=== PATIENT | female | born 1985 | race Two or more races ===

== ENCOUNTER 2017-12-03 00:30 | Emergency (ER) | payer SELFPAY | END 2017-12-03 01:20 | disposition home or self-care (01) | LOC: ER 00:30 | DX: B34.9 Viral infection, unspecified (principal) | CPT/HCPCS: 99281 ==

== ENCOUNTER → 2018-10-29 | Emergency (ER) | payer SELFPAY ==
[~2018-10-29] VITALS: Ht 157.5 cm; Wt 68.0 kg
[~2018-10-29] MED LIST: AMOX1TAB61 PO; DEXAMETHASONE SOD PHOS 20 MG/5 ML VIAL. IV ONE; DICL50TA2 PO; IV NORMAL SALINE 1000ML BAG 1,000 ML IV ONE; ONDA4TAB7 PO; PROCHLORPERAZINE 10 MG/2 ML VIAL. IV ONE
--- NOTE | 2018-10-29 15:37 | PHYS DOC ---
Past Medical History Past Medical History: No Pertinent History Past Surgical History: No Surgical History Alcohol Use: None Drug Use: None Adult General Chief Complaint Chief Complaint: HEADACHE HPI HPI Patient is a 33 year old female with no significant medical history who presents today complaining of a 5 out of 10 frontal headache radiating to the back of her head that has been going on for 6 days. Patient states the headache comes and goes. She describes the headache as inflammation. She is also complaining of nausea but no vomiting. She states she's had similar headaches before but has not been diagnosed with migraine headaches. She is Kiswahili- speaking but able to understand but speaks some Lithuanian. She is in the ED with the niece who is interpreting for Kiswahili. Review of Systems Review of Systems Constitutional: Denies fever or chills [] Eyes: Denies change in visual acuity, redness, or eye pain [] HENT: Denies nasal congestion or sore throat [] Respiratory: Denies cough or shortness of breath [] Cardiovascular: No additional information not addressed in HPI [] GI: Reports nausea. Denies abdominal pain, nausea, vomiting, bloody stools or diarrhea [] : Denies dysuria or hematuria [] Musculoskeletal: Denies back pain or joint pain [] Integument: Denies rash or skin lesions [] Neurologic: Reports headache, denies focal weakness or sensory changes [] All other systems were reviewed and found to be within normal limits, except as documented in this note. Current Medications Current Medications Current Medications Medications (Trade) Dose Ordered Sig/Rosmery Start Time Stop Time Status Last Admin Dose Admin Dexamethasone Sodium Phosphate (Decadron) 10 mg 1X ONCE 10/29/18 15:45 10/29/18 15:46 DC 10/29/18 15:59 10 MG Prochlorperazine Edisylate (Compazine) 10 mg 1X ONCE 10/29/18 15:45 10/29/18 15:46 DC 10/29/18 15:59 10 MG Sodium Chloride 1,000 ml @ 1,000 mls/hr 1X ONCE 10/29/18 15:45 10/29/18 16:44 10/29/18 16:00 1,000 MLS/HR Allergies Allergies Allergies Coded Allergies Type Severity Reaction Last Updated Verified No Known Drug Allergies 10/29/18 No Physical Exam Physical Exam Constitutional: Well developed, well nourished, no acute distress, non-toxic appearance. [] HENT: Normocephalic, atraumatic, bilateral external ears normal, oropharynx moist, no oral exudates, nose normal. [] Eyes: PERRLA, EOMI, conjunctiva normal, no discharge. [] Neck: Normal range of motion, no tenderness, supple, no stridor. [] Cardiovascular:Heart rate regular rhythm, no murmur [] Lungs & Thorax: Bilateral breath sounds clear to auscultation [] Abdomen: Bowel sounds normal, soft, no tenderness, no masses, no pulsatile masses. [] Skin: Warm, dry, no erythema, no rash. [] Back: No tenderness, no CVA tenderness. [] Extremities: No tenderness, no cyanosis, no clubbing, ROM intact, no edema. [] Neurologic: Alert and oriented X 3, normal motor function, normal sensory function, no focal deficits noted. Cranial nerves II through XII intact Psychologic: Affect normal, judgement normal, mood normal. [] Current Patient Data Vital Signs Vital Signs Date Time Temp Pulse Resp B/P (MAP) Pulse Ox O2 Delivery O2 Flow Rate FiO2 10/29/18 15:59 66 18 99 10/29/18 15:30 97.6 143/82 (102) Room Air 97.6 Lab Values Laboratory Tests Test 10/29/18 15:24 10/29/18 15:42 10/29/18 15:45 Urine Collection Type Unknown Urine Color Yellow Urine Clarity Clear Urine pH 6.0 Urine Specific [place] 1.010 Urine Protein Negative mg/dL (NEG-TRACE) Urine Glucose (UA) Negative mg/dL (NEG) Urine Ketones (Stick) Negative mg/dL (NEG) Urine Blood Small (NEG) Urine Nitrite Negative (NEG) Urine Bilirubin Negative (NEG) Urine Urobilinogen Dipstick 0.2 mg/dL (0.2 mg/dL) Urine Leukocyte Esterase Negative (NEG) Urine RBC Rare /HPF (0-2) Urine WBC Rare /HPF (0-4) Urine Squamous Epithelial Cells Many /LPF Urine Bacteria Mod /HPF (0-FEW) POC Urine HCG, Qualitative Hcg negative (Negative) White Blood Count 7.1 x10^3/uL (4.0-11.0) Red Blood Count 4.17 x10^6/uL (3.50-5.40) Hemoglobin 14.0 g/dL (12.0-15.5) Hematocrit 40.1 % (36.0-47.0) Mean Corpuscular Volume 96 fL (79-100) Mean Corpuscular Hemoglobin 34 pg (25-35) Mean Corpuscular Hemoglobin Concent 35 g/dL (31-37) Red Cell Distribution Width 12.5 % (11.5-14.5) Platelet Count 230 x10^3/uL (140-400) Neutrophils (%) (Auto) 60 % (31-73) Lymphocytes (%) (Auto) 33 % (24-48) Monocytes (%) (Auto) 6 % (0-9) Eosinophils (%) (Auto) 1 % (0-3) Basophils (%) (Auto) 1 % (0-3) Neutrophils # (Auto) 4.2 x10^3uL (1.8-7.7) Lymphocytes # (Auto) 2.3 x10^3/uL (1.0-4.8) Monocytes # (Auto) 0.4 x10^3/uL (0.0-1.1) Eosinophils # (Auto) 0.1 x10^3/uL (0.0-0.7) Basophils # (Auto) 0.1 x10^3/uL (0.0-0.2) Sodium Level 139 mmol/L (136-145) Potassium Level 3.4 mmol/L (3.5-5.1) L Chloride Level 103 mmol/L (98-107) Carbon Dioxide Level 25 mmol/L (21-32) Anion Gap 11 (6-14) Blood Urea Nitrogen 15 mg/dL (7-20) Creatinine 0.9 mg/dL (0.6-1.0) Estimated GFR (Cockcroft-Gault) 71.3 Glucose Level 88 mg/dL (70-99) Calcium Level 8.9 mg/dL (8.5-10.1) Laboratory Tests 10/29/18 15:45 Laboratory Tests 10/29/18 15:45 EKG EKG [] Radiology/Procedures Radiology/Procedures []PROCEDURE: CT HEAD WO CONTRAST CT HEAD WO CONTRAST Indication: SORIANO X 6 DAYS FRONTAL SOIRANO RADIATING TO ANUP OF HEAD X 6 DAYS NO PREV Exposure: One or more of the following individualized dose reduction techniques were utilized for this examination: 1. Automated exposure control 2. Adjustment of the mA and/or kV according to patient size 3. Use of iterative reconstruction technique. Comparison: None are available. Contrast: None FINDINGS: Posterior fossa is unremarkable. No evidence of acute intracranial hemorrhage or abnormal extra-axial fluid collection. No evidence of mass effect or midline shift. Ventricles are symmetric in size and configuration. Orellana-white matter distinction is intact. Visualized orbits are unremarkable. Partially visualized ethmoid sinuses demonstrate mucosal thickening. Mild mucosal thickening within the partially visualized sphenoid and maxillary sinuses. No acute calvarial abnormality. Impression: 1. Paranasal sinus disease. 2. Negative for acute intracranial hemorrhage or mass effect. Electronically signed by: Wander Mahmood MD (10/29/2018 4:30 PM) [facility] DICTATED and SIGNED BY: WANDER MAHMOOD MD DATE: 10/29/18 8238 Course & Med Decision Making Course & Med Decision Making Pertinent Labs and Imaging studies reviewed. (See chart for details) This is a 33-year-old female patient presenting to the ED today with a headache intermittently for 6 days as well as nausea with no vomiting. Has history of similar headaches, no fissure diagnosis of migraine. Her vitals are normal. She has no meningeal signs. She was given 1 L of IV fluid Solu-Medrol and Compazine with good relief of her headache. CBC BMP with no acute findings, urine analysis is negative for infection, negative urine hCG, CT of the head is negative for any acute findings, noted for sinusitis. Patient discharged on Augmentin. Given prescription for diclofenac for her headache. Also given prescription for Zofran as needed. Follow-up with her PCP in one week. Instructed fluids. Dragon Disclaimer Dragon Disclaimer This electronic medical record was generated, in whole or in part, using a voice recognition dictation system. Departure Departure Impression: Primary Impression: Sinusitis Additional Impression: Sinus headache Disposition: 01 HOME, SELF-CARE Condition: STABLE Referrals: NO PCP (PCP) Follow-up with your doctor in 1-2 weeks Patient Instructions: Sinus Headache, [id number], Sinusitis Additional Instructions: You were evaluated in the emergency room for a headache and noted to have sinus infection. We put you on antibiotics and pain medications, take them as prescribed. Follow-up with your doctor in 1-2 weeks. Push fluids. Come back to the ED at any point symptoms worsen. Scripts Ondansetron Hcl (ZOFRAN) 4 Mg Tablet 1 TAB PO Q6HRS, #20 TAB Prov: PEGGY BAUM APRN 10/29/18 Diclofenac Potassium (DICLOFENAC POTASSIUM) 50 Mg Tablet 1 TAB PO BID, #30 TAB 0 Refills Prov: PEGGY BAUM APRN 10/29/18 Amoxicillin/Potassium Clav (AUGMENTIN 875-125 TABLET) 1 Each Tablet 1 TAB PO BID, #20 TAB Prov: PEGGY BAUM APRN 10/29/18 Problem Qualifiers Primary Impression: Sinusitis Sinusitis location: pansinusitis Chronicity: acute Recurrence: non- recurrent Qualified Codes: J01.40 - Acute pansinusitis, unspecified PEGGY BAUM APRN Oct 29, 2018 15:37
[2018-10-29 15:54] LABS: BASO # 0.1 x10^3/uL (0.0-0.2); BASO % 1 % (0-3); EOS # 0.1 x10^3/uL (0.0-0.7); EOS % 1 % (0-3); HEMATOCRIT 40.1 % (36.0-47.0); LYMPH # 2.3 x10^3/uL (1.0-4.8); LYMPH % 33 % (24-48); MEAN CORPUSCULAR HEMOGLOBIN 34 pg (25-35); MEAN CORPUSCULAR HGB CONC 35 g/dL (31-37); MEAN CORPUSCULAR VOLUME 96 fL (79-100); MONO # 0.4 x10^3/uL (0.0-1.1); MONO % 6 % (0-9); NEUT # 4.2 x10^3uL (1.8-7.7); NEUT % 60 % (31-73); PLATELET COUNT 230 x10^3/uL (140-400); RED BLOOD COUNT 4.17 x10^6/uL (3.50-5.40); RED CELL DISTRIBUTION WIDTH 12.5 % (11.5-14.5); WHITE BLOOD COUNT 7.1 x10^3/uL (4.0-11.0)
[2018-10-29 15:56] LABS: BILIRUBIN,URINE NEGATIVE (NEG); CLARITY,URINE CLEAR; COLOR,URINE YELLOW; NITRITE,URINE NEGATIVE (NEG); PROTEIN,URINE NEGATIVE (NEG-TRACE); UROBILINOGEN,URINE 0.2 mg/dL (0.2 mg/dL)
[2018-10-29 16:03] LABS: BACTERIA,URINE MOD /HPF (0-FEW); RBC,URINE RARE /HPF (0-2); SQUAMOUS EPITHELIAL CELL,UR MANY /LPF; WBC,URINE RARE /HPF (0-4)
[2018-10-29 16:06] LABS: CALCIUM 8.9 mg/dL (8.5-10.1); CREATININE 0.9 mg/dL (0.6-1.0); GFR 71.3; POTASSIUM 3.4 mmol/L (3.5-5.1)
--- NOTE | 2018-10-29 16:33 | RAD ---
CT HEAD WO CONTRAST Indication: SORIANO X 6 DAYS FRONTAL SORIANO RADIATING TO ANUP OF HEAD X 6 DAYS NO PREV Exposure: One or more of the following individualized dose reduction techniques were utilized for this examination: 1. Automated exposure control 2. Adjustment of the mA and/or kV according to patient size 3. Use of iterative reconstruction technique. Comparison: None are available. Contrast: None FINDINGS: Posterior fossa is unremarkable. No evidence of acute intracranial hemorrhage or abnormal extra-axial fluid collection. No evidence of mass effect or midline shift. Ventricles are symmetric in size and configuration. Orellana-white matter distinction is intact. Visualized orbits are unremarkable. Partially visualized ethmoid sinuses demonstrate mucosal thickening. Mild mucosal thickening within the partially visualized sphenoid and maxillary sinuses. No acute calvarial abnormality. Impression: 1. Paranasal sinus disease. 2. Negative for acute intracranial hemorrhage or mass effect. Electronically signed by: Wander Mahmood MD (10/29/2018 4:30 PM) [facility]
[2018-10-29 17:07] VITALS: BP 116/76
== END ==
LOC: ER 15:14
DX: J01.40 Acute pansinusitis, unspecified (principal); R51 Headache; R11.0 Nausea
CPT/HCPCS: 36415; 70450; 80048; 81001; 81025; 85025; 96374; 96375; 99284; J0780; J1100; J7030

== ENCOUNTER 2019-01-16 09:55 | Inpatient (IN) | payer SELFPAY ==
[~2019-01-16] VITALS: Ht 154.9 cm; Wt 68.0 kg
[~2019-01-16 09:55] MED LIST changes: -DEXAMETHASONE SOD PHOS 20 MG/5 ML VIAL. IV ONE; -IV NORMAL SALINE 1000ML BAG 1,000 ML IV ONE; -PROCHLORPERAZINE 10 MG/2 ML VIAL. IV ONE
[2019-01-16 10:28] LABS: BILIRUBIN,URINE NEGATIVE (NEG); CLARITY,URINE CLEAR; COLOR,URINE YELLOW; NITRITE,URINE NEGATIVE (NEG); PROTEIN,URINE NEGATIVE (NEG-TRACE); UROBILINOGEN,URINE 0.2 mg/dL (0.2 mg/dL)
[2019-01-16 10:35] LABS: BASO # 0.1 x10^3/uL (0.0-0.2); BASO % 1 % (0-3); EOS % 1 % (0-3); HEMATOCRIT 22.5 % (36.0-47.0); HEMOGLOBIN 7.8 g/dL (12.0-15.5); LYMPH # 1.7 x10^3/uL (1.0-4.8); LYMPH % 28 % (24-48); MEAN CORPUSCULAR HEMOGLOBIN 34 pg (25-35); MEAN CORPUSCULAR HGB CONC 35 g/dL (31-37); MEAN CORPUSCULAR VOLUME 97 fL (79-100); MONO # 0.3 x10^3/uL (0.0-1.1); MONO % 5 % (0-9); NEUT # 3.9 x10^3uL (1.8-7.7); NEUT % 65 % (31-73); PLATELET COUNT 229 x10^3/uL (140-400); RED BLOOD COUNT 2.32 x10^6/uL (3.50-5.40); RED CELL DISTRIBUTION WIDTH 11.9 % (11.5-14.5)
[2019-01-16 10:36] LABS: BACTERIA,URINE FEW /HPF (0-FEW); RBC,URINE 20-40 /HPF (0-2); SQUAMOUS EPITHELIAL CELL,UR FEW /LPF; WBC,URINE OCC /HPF (0-4)
[2019-01-16 10:58] LABS: CALCIUM 8.2 mg/dL (8.5-10.1); CREATININE 0.8 mg/dL (0.6-1.0); GFR 81.6; POTASSIUM 3.8 mmol/L (3.5-5.1)
[2019-01-16 11:03] LABS: ALBUMIN 3.3 g/dL (3.4-5.0); TOTAL BILIRUBIN 0.3 mg/dL (0.2-1.0); TOTAL PROTEIN 6.7 g/dL (6.4-8.2)
--- NOTE | 2019-01-16 12:21 | RAD ---
Examination: Ultrasound pelvis HISTORY: History of vaginal bleeding for 2 weeks COMPARISON: None available. FINDINGS: The uterus measures 8.3 x 4.5 x 5.8 cm. The endometrium measures 3.3 mm in thickness. The right ovary measures 2.9 x 1.60 2.4 cm. The left ovary measures 3.8 x 2.6 x 3.3 cm. Blood flow identified in the right and left ovaries. Small amount of free fluid identified in the pelvis. There is a 3.8 cm cyst identified in the left ovary. IMPRESSION: 1. 3.8 cm cyst left ovary. 2. Small amount of free fluid identified in the pelvis. Electronically signed by: Jordon Rodriguez MD (01/16/2019 12:18 PM) [place] [id number]
[2019-01-16] MEDS: IV NORMAL SALINE 1000ML BAG 1,000 ML IV SCH ×2 (12:48→20:48)
[2019-01-16] MEDS ORDERED: fentaNYL PF VIAL 100 MCG/2 ML VIAL IV PRN (13:00)
[2019-01-16] MEDS ORDERED: ONDANSETRON PF 4 MG/2 ML VIAL. IV PRN (13:00)
[2019-01-16] MEDS ORDERED: ACETAMINOPHEN 325 MG TABLET. PO PRN (13:00)
[2019-01-16 13:45] VITALS: BP 93/68
[2019-01-16] MEDS: IV RINGERS,LACTATED 1000ML 1,000 ML IV SCH (13:53)
[2019-01-16] MEDS ORDERED: ESTROGENS, CONJUGATED 25 MG VIAL IV ONE (14:00)
--- NOTE | 2019-01-16 14:07 | PDOC1 ---
History and Physical Date of Admission Date of Admission DATE: 01/16/19 TIME: 14:02 Identification/Chief Complaint Chief Complaint vaginal bleeding Source Source: Chart review, Patient History of Present Illness History of Present Illness 33 y/o A1 presented to ED with c/o vaginal bleeding for past few weeks. She reports menses heavy past few months. Hgb 7 and Pelvic sono MICHELE cyst 4 cm size. She reports pain in LLQ that is controlled with Motrin. Discussed findings and plan of care with patient and family with family seismic interpreter. Past Medical History Cardiovascular: No pertinent hx Pulmonary: No pertinent hx GI: No pertinent hx Heme/Onc: No pertinent hx Psych: No pertinent hx Musculoskeletal: low back pain Infectious disease: No pertinent hx Renal/: No pertinent hx Endocrine: No pertinent hx Dermatology: No pertinent hx Current Medications Current Medications Current Medications Estrogens Conjugated (Premarin) 25 mg 1X ONCE IV Last administered on at 13:03; Start 01/16/19 at 14:00; Stop 01/16/19 at 14:01; Status DC Ondansetron HCl (Zofran) 4 mg PRN Q8HRS PRN IV NAUSEA/VOMITING; Start 01/16/19 at 13:00; Stop 01/17/19 at 12:59 Fentanyl Citrate (Fentanyl 2ml Vial) 50 mcg PRN Q1HR PRN IV PAIN; Start at 13:00; Stop 01/17/19 at 12:59 Sodium Chloride 1,000 ml @ 125 mls/hr Q8H IV ; Start 01/16/19 at 12:48; Stop at 12:47 Acetaminophen (Tylenol) 650 mg PRN Q4HRS PRN PO FEVER; Start 01/16/19 at 13:00 ; Stop 01/17/19 at 12:59 Ringer's Solution 1,000 ml @ 75 mls/hr [id number] IV Last administered on at 13:53; Start 01/16/19 at 14:00 Active Scripts Active Zofran (Ondansetron Hcl) 4 Mg Tablet 1 Tab PO Q6HRS Diclofenac Potassium 50 Mg Tablet 1 Tab PO BID Augmentin 875-125 Tablet (Amoxicillin/Potassium Clav) 1 Each Tablet 1 Tab PO BID Allergies Allergies: Coded Allergies: No Known Drug Allergies (Unverified , 10/29/18) ROS General: YES: Fatigue; No: Chills, Night Sweats, Malaise, Appetite, Other PSYCHOLOGICAL ROS: No: Anxiety, Behavioral Disorder, Concentration difficultie , Decreased libido, Depression, Disorientation, Hallucinations, Hostility, Irritablity, Memory difficulties, Mood Swings, Obsessive thoughts, Physical abuse, Sexual abuse, Sleep disturbances, Suicidal ideation, Other Eyes: No Blurry vision, No Decreased vision, No Double vision, No Dry eyes, No Excessive tearing, No Eye Pain, No Itchy Eyes, No Loss of vision, No Photophobia , No Scotomata, No Uses contacts, No Uses glasses, No Other HEENT: No: Heacaches, Visual Changes, Hearing change, Nasal congestion, Nasal discharge, Oral lesions, Sinus pain, Sore Throat, Epistaxis, Sneezing, Snoring, Tinnitus, Vertigo, Vocal changes, Other ALLERGY AND IMMUNOLOGY: No: Hives, Insect Bite Sensitivity, Itchy/Watery Eyes, Nasal Congestion, Post Nasal Drip, Seasonal Allergies, Other Hematological and Lymphatic: No: Bleeding Problems, Blood Clots, Blood Transfusions, Brusing, Night Sweats, Pallor, Swollen Lymph Nodes, Other ENDOCRINE: No: Breast Changes, Galactorrhea, Hair Pattern Changes, Hot Flashes , Malaise/lethargy, Mood Swings, Palpitations, Polydipsia/polyuria, Skin Changes , Temperature Intolerance, Unexpected Weight Changes, Other Breast: No New/Changing Breast Lumps, No Nipple changes, No Nipple discharge, No Other Respiratory: No: Cough, Hemoptysis, Orthopnea, Pleuritic Pain, Shortness of breath, SOB with excertion, Sputum Changes, Stridor, Tachypnea, Wheezing, Other Cardiovascular: No Chest Pain, No Palpitations, No Orthopnea, No Paroxysmal Noc. Dyspnea, No Edema, No Lt Headedness, No Other Gastrointestinal: Yes Abdominal Pain; No Nausea, No Vomiting, No Diarrhea, No Constipation, No Melena, No Hematochezia, No Other Genitourinary: No Dysuria, No Frequency, No Incontinence, No Hematuria, No Retention, No Discharge, No Urgency, No Pain, No Flank Pain, No Other, No , No , No , No , No , No , No Musculoskeletal: No Gait Disturbance, No Joint Pain, No Joint Stiffness, No Joint Swelling, No Muscle Pain, No Muscular Weakness, No Pain In:, No Swelling In:, No Other Skin: No Dry Skin, No Eczema, No Hair Changes, No Lumps, No Mole Changes, No Mottling, No Nail Changes, No Pruritus, No Rash, No Skin Lesion Changes, No Other, No Acne Physical Exam General: Alert, Oriented X3, Cooperative HEENT: Atraumatic Lungs: Clear to auscultation Heart: S1S2 Breasts: Normal Abdomen: Normal bowel sounds, Soft, No masses, Other (LLQ tenderness; no surgical abd.) Extremities: No edema Psych/Mental Status: Mental status NL Vitals Vitals Vital Signs Date Time Temp Pulse Resp B/P (MAP) Pulse Ox O2 Delivery O2 Flow Rate FiO2 01/16/19 12:03 82 114/61 (78) 100 Room Air 01/16/19 10:14 98.1 16 98.1 Labs Labs Laboratory Tests Test 01/16/19 10:15 01/16/19 10:22 01/16/19 10:30 Urine Collection Type Unknown Urine Color Yellow Urine Clarity Clear Urine pH 6.0 Urine Specific [place] 1.015 Urine Protein Negative mg/dL (NEG-TRACE) Urine Glucose (UA) Negative mg/dL (NEG) Urine Ketones (Stick) Negative mg/dL (NEG) Urine Blood Large (NEG) Urine Nitrite Negative (NEG) Urine Bilirubin Negative (NEG) Urine Urobilinogen Dipstick 0.2 mg/dL (0.2 mg/dL) Urine Leukocyte Esterase Negative (NEG) Urine RBC 20-40 /HPF (0-2) Urine WBC Occ /HPF (0-4) Urine Squamous Epithelial Cells Few /LPF Urine Bacteria Few /HPF (0-FEW) Bedside Urine HCG, Qualitative Hcg negative (Negative) White Blood Count 6.0 x10^3/uL (4.0-11.0) Red Blood Count 2.32 x10^6/uL (3.50-5.40) Hemoglobin 7.8 g/dL (12.0-15.5) Hematocrit 22.5 % (36.0-47.0) Mean Corpuscular Volume 97 fL (79-100) Mean Corpuscular Hemoglobin 34 pg (25-35) Mean Corpuscular Hemoglobin Concent 35 g/dL (31-37) Red Cell Distribution Width 11.9 % (11.5-14.5) Platelet Count 229 x10^3/uL (140-400) Neutrophils (%) (Auto) 65 % (31-73) Lymphocytes (%) (Auto) 28 % (24-48) Monocytes (%) (Auto) 5 % (0-9) Eosinophils (%) (Auto) 1 % (0-3) Basophils (%) (Auto) 1 % (0-3) Neutrophils # (Auto) 3.9 x10^3uL (1.8-7.7) Lymphocytes # (Auto) 1.7 x10^3/uL (1.0-4.8) Monocytes # (Auto) 0.3 x10^3/uL (0.0-1.1) Eosinophils # (Auto) 0.0 x10^3/uL (0.0-0.7) Basophils # (Auto) 0.1 x10^3/uL (0.0-0.2) Sodium Level 142 mmol/L (136-145) Potassium Level 3.8 mmol/L (3.5-5.1) Chloride Level 106 mmol/L (98-107) Carbon Dioxide Level 26 mmol/L (21-32) Anion Gap 10 (6-14) Blood Urea Nitrogen 13 mg/dL (7-20) Creatinine 0.8 mg/dL (0.6-1.0) Estimated GFR (Cockcroft-Gault) 81.6 BUN/Creatinine Ratio 16 (6-20) Glucose Level 109 mg/dL (70-99) Calcium Level 8.2 mg/dL (8.5-10.1) Total Bilirubin 0.3 mg/dL (0.2-1.0) Aspartate Amino Transf (AST/SGOT) 15 U/L (15-37) Alanine Aminotransferase (ALT/SGPT) 21 U/L (14-59) Alkaline Phosphatase 55 U/L (46-116) Total Protein 6.7 g/dL (6.4-8.2) Albumin 3.3 g/dL (3.4-5.0) Albumin/Globulin Ratio 1.0 (1.0-1.7) Laboratory Tests Test 01/16/19 10:15 01/16/19 10:22 01/16/19 10:30 Urine Collection Type Unknown Urine Color Yellow Urine Clarity Clear Urine pH 6.0 Urine Specific [place] 1.015 Urine Protein Negative mg/dL (NEG-TRACE) Urine Glucose (UA) Negative mg/dL (NEG) Urine Ketones (Stick) Negative mg/dL (NEG) Urine Blood Large (NEG) Urine Nitrite Negative (NEG) Urine Bilirubin Negative (NEG) Urine Urobilinogen Dipstick 0.2 mg/dL (0.2 mg/dL) Urine Leukocyte Esterase Negative (NEG) Urine RBC 20-40 /HPF (0-2) Urine WBC Occ /HPF (0-4) Urine Squamous Epithelial Cells Few /LPF Urine Bacteria Few /HPF (0-FEW) Bedside Urine HCG, Qualitative Hcg negative (Negative) White Blood Count 6.0 x10^3/uL (4.0-11.0) Red Blood Count 2.32 x10^6/uL (3.50-5.40) Hemoglobin 7.8 g/dL (12.0-15.5) Hematocrit 22.5 % (36.0-47.0) Mean Corpuscular Volume 97 fL (79-100) Mean Corpuscular Hemoglobin 34 pg (25-35) Mean Corpuscular Hemoglobin Concent 35 g/dL (31-37) Red Cell Distribution Width 11.9 % (11.5-14.5) Platelet Count 229 x10^3/uL (140-400) Neutrophils (%) (Auto) 65 % (31-73) Lymphocytes (%) (Auto) 28 % (24-48) Monocytes (%) (Auto) 5 % (0-9) Eosinophils (%) (Auto) 1 % (0-3) Basophils (%) (Auto) 1 % (0-3) Neutrophils # (Auto) 3.9 x10^3uL (1.8-7.7) Lymphocytes # (Auto) 1.7 x10^3/uL (1.0-4.8) Monocytes # (Auto) 0.3 x10^3/uL (0.0-1.1) Eosinophils # (Auto) 0.0 x10^3/uL (0.0-0.7) Basophils # (Auto) 0.1 x10^3/uL (0.0-0.2) Sodium Level 142 mmol/L (136-145) Potassium Level 3.8 mmol/L (3.5-5.1) Chloride Level 106 mmol/L (98-107) Carbon Dioxide Level 26 mmol/L (21-32) Anion Gap 10 (6-14) Blood Urea Nitrogen 13 mg/dL (7-20) Creatinine 0.8 mg/dL (0.6-1.0) Estimated GFR (Cockcroft-Gault) 81.6 BUN/Creatinine Ratio 16 (6-20) Glucose Level 109 mg/dL (70-99) Calcium Level 8.2 mg/dL (8.5-10.1) Total Bilirubin 0.3 mg/dL (0.2-1.0) Aspartate Amino Transf (AST/SGOT) 15 U/L (15-37) Alanine Aminotransferase (ALT/SGPT) 21 U/L (14-59) Alkaline Phosphatase 55 U/L (46-116) Total Protein 6.7 g/dL (6.4-8.2) Albumin 3.3 g/dL (3.4-5.0) Albumin/Globulin Ratio 1.0 (1.0-1.7) VTE Prophylaxis Ordered VTE Prophylaxis Devices: No VTE Pharmacological Prophylaxi: No Assessment/Plan Assessment/Plan A: AUB Severe Anemia MICHELE cyst P: Admit for treatment AUB. IV Premarin x 24 hours. Recheck CBC in am. Recommend repeat pelvic sono in 6 wks to f/u on MICHELE cyst. HERMELINDA PINK Jr, MD Jan 16, 2019 14:07
[2019-01-16] MEDS: IBUPROFEN 400 MG TABLET. PO PRN ×2 (14:17→19:54)
[2019-01-16 15:10] VITALS: BP 91/62
[2019-01-16 18:30] VITALS: BP 94/55
--- NOTE | 2019-01-16 19:56 | PHYS DOC ---
Past Medical History Past Medical History: No Pertinent History (ESAU SORIANO APRN) Past Surgical History: No Surgical History (ESAU SORIANO APRN) Alcohol Use: None Drug Use: None (ESAU SORIANO APRN) Adult General Chief Complaint Chief Complaint: VAGINAL BLEEDING [facility] HPI Patient is a 33 year old female who presents with abnormal uterine bleeding 2 weeks. The patient was seen at an area emergency department and placed on progesterone. She states at that time she was soaking approximately 4 Kotex an hour. She states that she is soaking approximately one Kotex an hour now but is still having heavy bleeding. She has not finished a round of progesterone. She states that she was seen approximately 2 days ago. She is here with family members who are interpreting for her. The patient is non-Amharic speaking. She is having mild pelvic pain. (ESAU SORIANO APRN) Review of Systems Review of Systems Constitutional: Denies fever or chills [] Eyes: Denies change in visual acuity, redness, or eye pain [] HENT: Denies nasal congestion or sore throat [] Respiratory: Denies cough or shortness of breath [] Cardiovascular: No additional information not addressed in HPI [] GI: Denies abdominal pain, nausea, vomiting, bloody stools or diarrhea [] : See history of present illness Musculoskeletal: Denies back pain or joint pain [] Integument: Denies rash or skin lesions [] Neurologic: Denies headache, focal weakness or sensory changes [] Endocrine: Denies polyuria or polydipsia [] All other systems were reviewed and found to be within normal limits, except as documented in this note. (ESAU SORIANO APRN) Allergies Allergies Allergies Coded Allergies Type Severity Reaction Last Updated Verified No Known Drug Allergies 10/29/18 No (EVARISTO FRANCISCO MD) Physical Exam Physical Exam Constitutional: Well developed, well nourished, no acute distress, non-toxic appearance. [] Cardiovascular:Heart rate regular rhythm, no murmur [] Lungs & Thorax: Bilateral breath sounds clear to auscultation [] Abdomen: Bowel sounds normal, soft, no tenderness, no masses, no pulsatile masses. [] Skin: Warm, dry, no erythema, no rash. [] Back: No tenderness, no CVA tenderness. [] Extremities: No tenderness, no cyanosis, no clubbing, ROM intact, no edema. [] Neurologic: Alert and oriented X 3, normal motor function, normal sensory function, no focal deficits noted. [] Psychologic: Affect normal, judgement normal, mood normal. [] Pelvic Exam: Shipping Room Helper present Abdomen: Nontender External Genitalia: Normal Skin Speculum: Pale pink vaginal mucosa, bloody cervical discharge, no sign of water fall hemorrhage but there clots noted to the vaginal vault Bimanual: mild tenderness with palpation, No CMT (ESAU SORIANO APRN) Current Patient Data Vital Signs Vital Signs Date Time Temp Pulse Resp B/P (MAP) Pulse Ox O2 Delivery O2 Flow Rate FiO2 01/16/19 12:03 82 114/61 (78) 100 Room Air 01/16/19 10:14 98.1 16 98.1 (EVARISTO FRANCISCO MD) Lab Values Laboratory Tests Test 01/16/19 10:15 01/16/19 10:22 01/16/19 10:30 Urine Collection Type Unknown Urine Color Yellow Urine Clarity Clear Urine pH 6.0 Urine Specific [place] 1.015 Urine Protein Negative mg/dL (NEG-TRACE) Urine Glucose (UA) Negative mg/dL (NEG) Urine Ketones (Stick) Negative mg/dL (NEG) Urine Blood Large (NEG) Urine Nitrite Negative (NEG) Urine Bilirubin Negative (NEG) Urine Urobilinogen Dipstick 0.2 mg/dL (0.2 mg/dL) Urine Leukocyte Esterase Negative (NEG) Urine RBC 20-40 /HPF (0-2) Urine WBC Occ /HPF (0-4) Urine Squamous Epithelial Cells Few /LPF Urine Bacteria Few /HPF (0-FEW) POC Urine HCG, Qualitative Hcg negative (Negative) White Blood Count 6.0 x10^3/uL (4.0-11.0) Red Blood Count 2.32 x10^6/uL (3.50-5.40) L Hemoglobin 7.8 g/dL (12.0-15.5) L Hematocrit 22.5 % (36.0-47.0) L Mean Corpuscular Volume 97 fL (79-100) Mean Corpuscular Hemoglobin 34 pg (25-35) Mean Corpuscular Hemoglobin Concent 35 g/dL (31-37) Red Cell Distribution Width 11.9 % (11.5-14.5) Platelet Count 229 x10^3/uL (140-400) Neutrophils (%) (Auto) 65 % (31-73) Lymphocytes (%) (Auto) 28 % (24-48) Monocytes (%) (Auto) 5 % (0-9) Eosinophils (%) (Auto) 1 % (0-3) Basophils (%) (Auto) 1 % (0-3) Neutrophils # (Auto) 3.9 x10^3uL (1.8-7.7) Lymphocytes # (Auto) 1.7 x10^3/uL (1.0-4.8) Monocytes # (Auto) 0.3 x10^3/uL (0.0-1.1) Eosinophils # (Auto) 0.0 x10^3/uL (0.0-0.7) Basophils # (Auto) 0.1 x10^3/uL (0.0-0.2) Sodium Level 142 mmol/L (136-145) Potassium Level 3.8 mmol/L (3.5-5.1) Chloride Level 106 mmol/L (98-107) Carbon Dioxide Level 26 mmol/L (21-32) Anion Gap 10 (6-14) Blood Urea Nitrogen 13 mg/dL (7-20) Creatinine 0.8 mg/dL (0.6-1.0) Estimated GFR (Cockcroft-Gault) 81.6 BUN/Creatinine Ratio 16 (6-20) Glucose Level 109 mg/dL (70-99) H Calcium Level 8.2 mg/dL (8.5-10.1) L Total Bilirubin 0.3 mg/dL (0.2-1.0) Aspartate Amino Transferase (AST) 15 U/L (15-37) Alanine Aminotransferase (ALT) 21 U/L (14-59) Alkaline Phosphatase 55 U/L (46-116) Total Protein 6.7 g/dL (6.4-8.2) Albumin 3.3 g/dL (3.4-5.0) L Albumin/Globulin Ratio 1.0 (1.0-1.7) Laboratory Tests 01/16/19 10:30 Laboratory Tests 01/16/19 10:30 Microbiology 01/16/19 Wet Prep - Final, Complete (EVARISTO FRANCISCO MD) EKG EKG [] (ESAU SORIANO APRN) Radiology/Procedures Radiology/Procedures []PATIENT: RAQUEL GREENBERGACCOUNT: [id number]#: [id number] : 1985 LOCATION: ER AGE: 33 SEX: F EXAM STATUS: REG ER ORD. PHYSICIAN: ESAU SORIANO APRN REASON: vaginal bleeding x 2 weeks PROCEDURE: PELVIS W/TV Examination: Ultrasound pelvis HISTORY: History of vaginal bleeding for 2 weeks COMPARISON: None available. FINDINGS: The uterus measures 8.3 x 4.5 x 5.8 cm. The endometrium measures 3.3 mm in thickness. The right ovary measures 2.9 x 1.60 2.4 cm. The left ovary measures 3.8 x 2.6 x 3.3 cm. Blood flow identified in the right and left ovaries. Small amount of free fluid identified in the pelvis. There is a 3.8 cm cyst identified in the left ovary. IMPRESSION: 1. 3.8 cm cyst left ovary. 2. Small amount of free fluid identified in the pelvis. Electronically signed by: Jordon Rodriguez MD (01/16/2019 12:18 PM) [place] [id number] DICTATED and SIGNED BY: JORDON RODRIGUEZ MD DATE: 01/16/191215 (ESAU SORIANO APRN) Course & Med Decision Making Course & Med Decision Making Pertinent Labs and Imaging studies reviewed. (See chart for details) []The patient has a significantly lowered hemoglobin of 7.5. Her hemoglobin was greater than [address] Bacon was consulted in the care of this patient. We will start Premarin 25 mg IV every 6 hours. She will be admitted to his service. She is in agreement with this plan. (ESAU SORIANO APRN) Course & Med Decision Making Staff Physician Addendum: I was working in the ER during the course of this patient's visit. I was available for consultation as needed, but I was not directly involved in the care of this patient. (EVARISTO FRANCISCO MD) Dragon Disclaimer Dragon Disclaimer This electronic medical record was generated, in whole or in part, using a voice recognition dictation system. (ESAU SORIANO APRN) Departure Departure Impression: Primary Impression: Abnormal uterine bleeding Additional Impression: Anemia Disposition: 09 ADMITTED INPATIENT Admitting Physician: Other (ESAU SORIANO APRN) Condition: STABLE Referrals: NO PCP (PCP) Problem Qualifiers ESAU SORIANO APRN Jan 16, 2019 19:56 EVARISTO FRANCISCO MD Jan 17, 2019 08:35
[2019-01-16] MEDS: ESTROGENS, CONJUGATED 25 MG VIAL IV SCH (19:58)
[2019-01-16 22:42] VITALS: BP 101/62
[2019-01-17] VITALS (15 sets, daily range): BP systolic 91–110; BP diastolic 54–72
[2019-01-17] MEDS: ESTROGENS, CONJUGATED 25 MG VIAL IV SCH ×4 (00:34→19:12)
[2019-01-17] MEDS: IV RINGERS,LACTATED 1000ML 1,000 ML IV SCH ×2 (03:20→15:52)
[2019-01-17] MEDS: IV NORMAL SALINE 1000ML BAG 1,000 ML IV SCH (04:48)
[2019-01-17 05:47] LABS: BASO # 0.1 x10^3/uL (0.0-0.2); BASO % 1 % (0-3); EOS # 0.1 x10^3/uL (0.0-0.7); EOS % 1 % (0-3); LYMPH # 1.8 x10^3/uL (1.0-4.8); LYMPH % 19 % (24-48); MEAN CORPUSCULAR HEMOGLOBIN 33 pg (25-35); MEAN CORPUSCULAR HGB CONC 34 g/dL (31-37); MEAN CORPUSCULAR VOLUME 96 fL (79-100); MONO # 0.5 x10^3/uL (0.0-1.1); MONO % 5 % (0-9); NEUT # 7.3 x10^3uL (1.8-7.7); NEUT % 74 % (31-73); PLATELET COUNT 228 x10^3/uL (140-400); RED BLOOD COUNT 2.02 x10^6/uL (3.50-5.40); RED CELL DISTRIBUTION WIDTH 12.2 % (11.5-14.5); WHITE BLOOD COUNT 9.8 x10^3/uL (4.0-11.0)
[2019-01-17 05:50] LABS: CALCIUM 7.7 mg/dL (8.5-10.1); CREATININE 0.9 mg/dL (0.6-1.0); GFR 71.3; POTASSIUM 4.1 mmol/L (3.5-5.1)
[2019-01-17 05:58] LABS: HEMATOCRIT 19.5 % (36.0-47.0); HEMOGLOBIN 6.6 g/dL (12.0-15.5)
--- NOTE | 2019-01-17 06:05 | NUR ---
CRITICAL LAB VALUE RECEIVED THIS AM, HGB 6.6 & HCT 19.5. DR. REDDY NOTIFIED AT 0602, NO NEW ORDERS RECEIVED, STATED WILL SEE THE PATIENT LATER ON TODAY. PT CURRENTLY SLEEPING PEACEFULLY, ALL VSS.
[2019-01-17] MEDS: IBUPROFEN 400 MG TABLET. PO PRN (10:47)
--- NOTE | 2019-01-17 11:26 | PDOC ---
Provider Note Provider Note Discussed with pt dx and need of EMB pt understood and agreed DELORIS REDDY MD Jan 17, 2019 11:26
--- NOTE | 2019-01-17 12:34 | NUR ---
At 1145 Dr Concepcion Parra performed an endometrial biopsy on patient. Speciman sent to [facility] lab for cytology.
[2019-01-17] MEDS ORDERED: diphenhydrAMINE HCL 25 MG CAPSULE PO PRN (13:00)
[2019-01-17] MEDS ORDERED: ONDANSETRON PF 4 MG/2 ML VIAL. IV PRN (13:15)
[2019-01-17] MEDS ORDERED: fentaNYL PF VIAL 100 MCG/2 ML VIAL IV ONE (14:15)
[2019-01-17] MEDS: KETOROLAC 30 MG/ML VIAL. IV PRN (19:13)
[2019-01-17] MEDS ORDERED: DOCUSATE SODIUM 100 MG CAPSULE. PO PRN (19:15)
[2019-01-17] MEDS ORDERED: ESTROGENS, CONJUGATED 0.625 MG TABLET PO PRN (19:15)
[2019-01-17] MEDS ORDERED: POLYETHYLENE GLYCOL 3350 17 GM PACKET. PO PRN (19:15)
--- NOTE | 2019-01-17 22:58 | NUR ---
2250 inserted new 22 g iv to L hand due to pt complaints about the AC iv site keeps beeping. will continue to monitor pt.
[2019-01-18] MEDS: ESTROGENS, CONJUGATED 25 MG VIAL IV SCH ×2 (01:58→06:17)
[2019-01-18] MEDS: IV RINGERS,LACTATED 1000ML 1,000 ML IV SCH (05:38)
[2019-01-18 05:40] VITALS: BP 95/56
[2019-01-18] MEDS: KETOROLAC 30 MG/ML VIAL. IV PRN (05:57)
[2019-01-18 08:04] LABS: HEMATOCRIT 25.1 % (36.0-47.0); HEMOGLOBIN 8.6 g/dL (12.0-15.5); RED BLOOD COUNT 2.73 x10^6/uL (3.50-5.40); RED CELL DISTRIBUTION WIDTH 16.1 % (11.5-14.5); WHITE BLOOD COUNT 9.7 x10^3/uL (4.0-11.0)
--- NOTE | 2019-01-18 08:22 | PDOC ---
SURGICAL PROGRESS NOTE Subjective Pt. feeling well. No complaints. Vital Signs Vital Signs Date Time Temp Pulse Resp B/P (MAP) Pulse Ox O2 Delivery O2 Flow Rate FiO2 01/18/19 05:40 97.9 96 18 95/56 (69) 99 Room Air 97.9 I&O Intake and Output 01/18/19 06:59 Intake Total 1050 ml Balance 1050 ml Intake Oral 440 ml Blood Product IV Normal Saline Flush 610 ml # Voids 3 PATIENT HAS A SY: No General: Alert, Oriented X3, Cooperative HEENT: Atraumatic Lungs: Clear to auscultation Heart: Regular rate Abdomen: Normal bowel sounds, Soft Extremities: No clubbing, No edema Psych/Mental Status: Mental status NL Labs Laboratory Tests Test 01/16/19 10:15 01/16/19 10:22 01/16/19 10:30 01/17/19 05:30 Urine Collection Type Unknown Urine Color Yellow Urine Clarity Clear Urine pH 6.0 Urine Specific [place] 1.015 Urine Protein Negative mg/dL (NEG-TRACE) Urine Glucose (UA) Negative mg/dL (NEG) Urine Ketones (Stick) Negative mg/dL (NEG) Urine Blood Large (NEG) Urine Nitrite Negative (NEG) Urine Bilirubin Negative (NEG) Urine Urobilinogen Dipstick 0.2 mg/dL (0.2 mg/dL) Urine Leukocyte Esterase Negative (NEG) Urine RBC 20-40 /HPF (0-2) Urine WBC Occ /HPF (0-4) Urine Squamous Epithelial Cells Few /LPF Urine Bacteria Few /HPF (0-FEW) Bedside Urine HCG, Qualitative Hcg negative (Negative) White Blood Count 6.0 x10^3/uL (4.0-11.0) 9.8 x10^3/uL (4.0-11.0) Red Blood Count 2.32 x10^6/uL (3.50-5.40) 2.02 x10^6/uL (3.50-5.40) Hemoglobin 7.8 g/dL (12.0-15.5) 6.6 g/dL (12.0-15.5) Hematocrit 22.5 % (36.0-47.0) 19.5 % (36.0-47.0) Mean Corpuscular Volume 97 fL (79-100) 96 fL (79-100) Mean Corpuscular Hemoglobin 34 pg (25-35) 33 pg (25-35) Mean Corpuscular Hemoglobin Concent 35 g/dL (31-37) 34 g/dL (31-37) Red Cell Distribution Width 11.9 % (11.5-14.5) 12.2 % (11.5-14.5) Platelet Count 229 x10^3/uL (140-400) 228 x10^3/uL (140-400) Neutrophils (%) (Auto) 65 % (31-73) 74 % (31-73) Lymphocytes (%) (Auto) 28 % (24-48) 19 % (24-48) Monocytes (%) (Auto) 5 % (0-9) 5 % (0-9) Eosinophils (%) (Auto) 1 % (0-3) 1 % (0-3) Basophils (%) (Auto) 1 % (0-3) 1 % (0-3) Neutrophils # (Auto) 3.9 x10^3uL (1.8-7.7) 7.3 x10^3uL (1.8-7.7) Lymphocytes # (Auto) 1.7 x10^3/uL (1.0-4.8) 1.8 x10^3/uL (1.0-4.8) Monocytes # (Auto) 0.3 x10^3/uL (0.0-1.1) 0.5 x10^3/uL (0.0-1.1) Eosinophils # (Auto) 0.0 x10^3/uL (0.0-0.7) 0.1 x10^3/uL (0.0-0.7) Basophils # (Auto) 0.1 x10^3/uL (0.0-0.2) 0.1 x10^3/uL (0.0-0.2) Sodium Level 142 mmol/L (136-145) 141 mmol/L (136-145) Potassium Level 3.8 mmol/L (3.5-5.1) 4.1 mmol/L (3.5-5.1) Chloride Level 106 mmol/L (98-107) 108 mmol/L (98-107) Carbon Dioxide Level 26 mmol/L (21-32) 24 mmol/L (21-32) Anion Gap 10 (6-14) 9 (6-14) Blood Urea Nitrogen 13 mg/dL (7-20) 14 mg/dL (7-20) Creatinine 0.8 mg/dL (0.6-1.0) 0.9 mg/dL (0.6-1.0) Estimated GFR (Cockcroft-Gault) 81.6 71.3 BUN/Creatinine Ratio 16 (6-20) Glucose Level 109 mg/dL (70-99) 104 mg/dL (70-99) Calcium Level 8.2 mg/dL (8.5-10.1) 7.7 mg/dL (8.5-10.1) Total Bilirubin 0.3 mg/dL (0.2-1.0) Aspartate Amino Transf (AST/SGOT) 15 U/L (15-37) Alanine Aminotransferase (ALT/SGPT) 21 U/L (14-59) Alkaline Phosphatase 55 U/L (46-116) Total Protein 6.7 g/dL (6.4-8.2) Albumin 3.3 g/dL (3.4-5.0) Albumin/Globulin Ratio 1.0 (1.0-1.7) Test 01/18/19 07:55 White Blood Count 9.7 x10^3/uL (4.0-11.0) Red Blood Count 2.73 x10^6/uL (3.50-5.40) Hemoglobin 8.6 g/dL (12.0-15.5) Hematocrit 25.1 % (36.0-47.0) Mean Corpuscular Volume 92 fL (79-100) Mean Corpuscular Hemoglobin 32 pg (25-35) Mean Corpuscular Hemoglobin Concent 35 g/dL (31-37) Red Cell Distribution Width 16.1 % (11.5-14.5) Platelet Count 210 x10^3/uL (140-400) Laboratory Tests Test 01/18/19 07:55 White Blood Count 9.7 x10^3/uL (4.0-11.0) Red Blood Count 2.73 x10^6/uL (3.50-5.40) Hemoglobin 8.6 g/dL (12.0-15.5) Hematocrit 25.1 % (36.0-47.0) Mean Corpuscular Volume 92 fL (79-100) Mean Corpuscular Hemoglobin 32 pg (25-35) Mean Corpuscular Hemoglobin Concent 35 g/dL (31-37) Red Cell Distribution Width 16.1 % (11.5-14.5) Platelet Count 210 x10^3/uL (140-400) Assessment/Plan A: AUB s/p Embx Anemia: s/p transfusion 2 Units PRBC's P: D/c home. HERMELINDA PINK Jr, MD Jan 18, 2019 08:21
--- NOTE | 2019-01-18 08:22 | DISCH ---
DISCHARGE INSTRUCTIONS Condition on Discharge Condition on Discharge: Stable Activity After Discharge Activity Instructions for Disc: Activity as tolerated Lifting Instructions after Dis: No heavy lifting Driving Instructions after Dis: Do not drive today Diet after Discharge Diet after Discharge: Regular Contacting the [facility] after DC Call your doctor for: Concerns you may have Follow-Up Follow up with: Dr. Parra in 1 week. HERMELINDA PINK Jr, MD Jan 18, 2019 08:22
[2019-01-18] MEDS ORDERED: NORG1TAB6 PO (08:24)
[2019-01-18] MEDS ORDERED: ESTROGENS, CONJUGATED 0.625 MG TABLET PO SCH (09:00)
--- NOTE | 2019-01-18 10:40 | NUR ---
Discharge Note: RAQUEL GREENBERG[address] [place] [address] Discharge instructions and discharge home medications reviewed with patient and a copy given. All questions have been answered and understanding verbalized. The following instructions and handouts were given: Abnormal uterine bleeding handout FF up with Dr. Parra in 1 week. Conjugated estrogen(Premarin) drug information. Discontinued lines and drains: peripheral IV catheters intact, patient tolerated removal, no complications noted . Patient discharged to home with self care accompanied by family members via wheelchair at 1038.
[2019-01-19 14:16] LABS: GC PROBE Negative (Negative)
--- NOTE | 2019-01-20 16:07 | PATHOLOGY ---
[facility] Accession Number: [id number] . 01 Material submitted: . ENDOMETRIAL BIOPSY . 01 Clinical history: . Abnormal uterine bleeding, anemia . 02 Diagnosis: Endometrial biopsy: - Secretory endometrium showing focal stromal edema and pseudodecidual change. (JPM:mariah; 01/20/2019) QMS/01/20/2019 . 02 Comment: There is no evidence of hyperplasia or malignancy. . 02 Electronically signed: . Burke Crowder MD, Pathologist NPI- [id number] . 01 Gross description: . The specimen is received in formalin, labeled "Kristi Belkys, endometrial biopsy", consist of dark brown hemorrhagic fragments measuring 2.0 x 2.0 x 0.4 cm in aggregate, entirely submitted in A1. ([facility]; 01/19/2019) SHS/SHS . 02 Pathologist provided ICD-10: N93.9, D64.9 . 02 CPT . 663788 Specimen Comment: A courtesy copy of this report has been sent to Specimen Comment: [phone], . Specimen Comment: Report sent to / DR SORIANO Specimen Comment: A duplicate report has been generated due to demographic updates. Performed at: 01 [facility] [place] [facility] [address], [place], [place] [id number] MD Ankush Bey MD Phone: [phone] Performed at: 02 [facility] [place] [address] [place], [place] [id number] MD Burke Crowder MD Phone: [phone]
== END 2019-01-18 10:38 | disposition home or self-care (01) | DRG 745 ==
LOC: ER 09:55 → 3 NORTH 12:33
PROVIDERS: ADMIT Specialist; ATTEND Specialist
PROC: 0UDB7ZX Extraction of Endometrium, Via Natural or Artificial Opening, Diagnostic (ICD-10-PCS; 2019-01-16)
PROC: 30233N1 Transfusion of Nonautologous Red Blood Cells into Peripheral Vein, Percutaneous Approach (ICD-10-PCS; principal; 2019-01-17)
DX: N83.202 Unspecified ovarian cyst, left side (principal); D64.9 Anemia, unspecified
CPT/HCPCS: 36415; 76830; 76856; 80048; 80053; 81001; 81025; 85025; 85027; 86850; 86900; 86901; 86920; 87491; 87591; 88305; 96374; J1410; J1885; J2405; J7120; P9016; Q0111; 99285-25

== ENCOUNTER 2020-01-13 03:10 | Emergency (ER) | payer SELFPAY ==
[~2020-01-13] VITALS: Ht 162.6 cm; Wt 67.3 kg
[~2020-01-13 03:10] MED LIST changes: +NORG1TAB6 PO
[2020-01-13 03:35] LABS: BASO % 0 % (0-3); EOS # 0.1 x10^3/uL (0.0-0.7); EOS % 1 % (0-3); HEMATOCRIT 39.5 % (36.0-47.0); HEMOGLOBIN 14.1 g/dL (12.0-15.5); LYMPH # 3.4 x10^3/uL (1.0-4.8); LYMPH % 37 % (24-48); MEAN CORPUSCULAR HEMOGLOBIN 33 pg (25-35); MEAN CORPUSCULAR HGB CONC 36 g/dL (31-37); MEAN CORPUSCULAR VOLUME 92 fL (79-100); MONO # 0.5 x10^3/uL (0.0-1.1); MONO % 6 % (0-9); NEUT # 5.3 x10^3/uL (1.8-7.7); NEUT % 57 % (31-73); PLATELET COUNT 293 x10^3/uL (140-400); RED BLOOD COUNT 4.28 x10^6/uL (3.50-5.40); RED CELL DISTRIBUTION WIDTH 12.8 % (11.5-14.5); WHITE BLOOD COUNT 9.3 x10^3/uL (4.0-11.0)
[2020-01-13 03:46] LABS: CALCIUM 9.5 mg/dL (8.5-10.1); GFR 62.7; POTASSIUM 3.4 mmol/L (3.5-5.1)
[2020-01-13 03:54] LABS: ALBUMIN 3.8 g/dL (3.4-5.0); MAGNESIUM 1.9 mg/dL (1.8-2.4); TOTAL BILIRUBIN 0.3 mg/dL (0.2-1.0); TOTAL PROTEIN 7.7 g/dL (6.4-8.2)
--- NOTE | 2020-01-13 04:18 | PHYS DOC ---
Past Medical History Past Medical History: No Pertinent History Past Surgical History: No Surgical History Smoking Status: Never Smoker Alcohol Use: None Drug Use: None Adult General Chief Complaint Chief Complaint: CHEST PAIN HPI HPI Patient is a 34 year old Polish-speaking female who presents with palpitations dizziness, and blurred vision. Symptoms began 2 hours prior to ED arrival. Denies chest pain, shortness of breath. Reports tingling and cramping in hands and feet. No fever cough, sore throat, abdominal pain. No leg pain or swelling. Last menstrual period weeks ago. No history DVT or PE. No other acute symptoms or complaints[] Review of Systems Review of Systems Review symptoms as per history of present illness. All other review symptoms are negative. All other systems were reviewed and found to be within normal limits, except as documented in this note. Current Medications Current Medications Current Medications Medications (Trade) Dose Ordered Sig/Rosmery Start Time Stop Time Status Last Admin Dose Admin Info (CONTRAST GIVEN -- Rx MONITORING) 1 each PRN DAILY PRN 01/13/20 04:45 01/15/20 04:44 Iohexol (Omnipaque 350 Mg/ml) 90 ml 1X ONCE 01/13/20 05:00 01/13/20 05:01 DC 01/13/20 04:47 90 ML Lorazepam (Ativan Inj) 0.5 mg 1X ONCE 01/13/20 03:30 01/13/20 03:31 DC 01/13/20 03:36 0.5 MG Sodium Chloride 1,000 ml @ 1,000 mls/hr 1X ONCE 01/13/20 05:00 01/13/20 05:59 01/13/20 04:25 1,000 MLS/HR Allergies Allergies Allergies Coded Allergies Type Severity Reaction Last Updated Verified No Known Drug Allergies 10/29/18 No Physical Exam Physical Exam Constitutional: Well developed, well nourished, no acute distress, non-toxic appearance. [] HENT: Normocephalic, atraumatic, bilateral external ears normal, oropharynx moist, nose normal. [] Eyes: PERRLA, EOMI, conjunctiva normal. [] Neck: Normal range of motion, no tenderness, supple. [] Cardiovascular: Regular rate and rhythm.[] Lungs & Thorax: Bilateral breath sounds clear to auscultation [] Abdomen: Bowel sounds normal, soft, no tenderness. [] Skin: Warm, dry, no erythema, no rash. [] Back: No tenderness, no CVA tenderness. [] Extremities: No tenderness, no edema. [] Neurologic: Alert and oriented X 3, cranial nerves II through XII grossly intact normal motor function, normal sensory function, no focal deficits noted. [] Psychologic: Affect normal, judgement normal, mood normal. [] Current Patient Data Vital Signs Vital Signs Date Time Temp Pulse Resp B/P (MAP) Pulse Ox O2 Delivery O2 Flow Rate FiO2 01/13/20 04:37 82 16 97 01/13/20 03:10 98.1 141/84 (103) Room Air 98.1 Lab Values Laboratory Tests Test 01/13/20 03:28 01/13/20 04:03 White Blood Count 9.3 x10^3/uL (4.0-11.0) Red Blood Count 4.28 x10^6/uL (3.50-5.40) Hemoglobin 14.1 g/dL (12.0-15.5) Hematocrit 39.5 % (36.0-47.0) Mean Corpuscular Volume 92 fL (79-100) Mean Corpuscular Hemoglobin 33 pg (25-35) Mean Corpuscular Hemoglobin Concent 36 g/dL (31-37) Red Cell Distribution Width 12.8 % (11.5-14.5) Platelet Count 293 x10^3/uL (140-400) Neutrophils (%) (Auto) 57 % (31-73) Lymphocytes (%) (Auto) 37 % (24-48) Monocytes (%) (Auto) 6 % (0-9) Eosinophils (%) (Auto) 1 % (0-3) Basophils (%) (Auto) 0 % (0-3) Neutrophils # (Auto) 5.3 x10^3/uL (1.8-7.7) Lymphocytes # (Auto) 3.4 x10^3/uL (1.0-4.8) Monocytes # (Auto) 0.5 x10^3/uL (0.0-1.1) Eosinophils # (Auto) 0.1 x10^3/uL (0.0-0.7) Basophils # (Auto) 0.0 x10^3/uL (0.0-0.2) D-Dimer (Delmi) 0.77 ug/mlFEU (0.00-0.50) H Sodium Level 141 mmol/L (136-145) Potassium Level 3.4 mmol/L (3.5-5.1) L Chloride Level 103 mmol/L (98-107) Carbon Dioxide Level 23 mmol/L (21-32) Anion Gap 15 (6-14) H Blood Urea Nitrogen 24 mg/dL (7-20) H Creatinine 1.0 mg/dL (0.6-1.0) Estimated GFR (Cockcroft-Gault) 62.7 BUN/Creatinine Ratio 24 (6-20) H Glucose Level 114 mg/dL (70-99) H Calcium Level 9.5 mg/dL (8.5-10.1) Magnesium Level 1.9 mg/dL (1.8-2.4) Total Bilirubin 0.3 mg/dL (0.2-1.0) Aspartate Amino Transferase (AST) 23 U/L (15-37) Alanine Aminotransferase (ALT) 29 U/L (14-59) Alkaline Phosphatase 73 U/L (46-116) Troponin I Quantitative < 0.017 ng/mL (0.000-0.055) Total Protein 7.7 g/dL (6.4-8.2) Albumin 3.8 g/dL (3.4-5.0) Albumin/Globulin Ratio 1.0 (1.0-1.7) Thyroid Stimulating Hormone (TSH) 3.412 uIU/mL (0.358-3.74) POC Urine HCG, Qualitative Hcg negative (Negative) Laboratory Tests 01/13/20 03:28 Laboratory Tests 01/13/20 03:28 EKG EKG [EKG: Reviewed, improved] Radiology/Procedures Radiology/Procedures CTA chest: NO PE Course & Med Decision Making Course & Med Decision Making Pertinent Labs and Imaging studies reviewed. (See chart for details) [ EKG and imaging studies performed and nondiagnostic. Symptoms improved with Ativan and IV fluids. Will discharge home. Recommend watchful waiting, supportive care and close PCP follow up. Return precautions perfused. Patient verbalizes understanding agreement with discharge instructions prior to depa rture e PCP follow-up.] Dragon Disclaimer Dragon Disclaimer This electronic medical record was generated, in whole or in part, using a voice recognition dictation system. Departure Departure Impression: Primary Impression: Dizziness Additional Impressions: Palpitations Arrhythmia Disposition: 01 HOME, SELF-CARE Condition: STABLE Referrals: NO PCP (PCP) Patient Instructions: Dizziness, [id number] Problem Qualifiers MIKO MUÑOZ DO Jan 13, 2020 04:18
--- NOTE | 2020-01-13 04:43 | RAD ---
INDICATION: Chest pain COMPARISON: None. FINDINGS: Single view of chest obtained. Hypoexpanded exam with mild prominence the cardiac silhouette which is likely exaggerated by portable technique. A definite focal consolidation is not seen IMPRESSION: * No focal airspace consolidation or edema. Electronically signed by: Amadou Vega MD (01/13/2020 4:40 AM) [email or web address]
[2020-01-13] MEDS ORDERED: CONTRAST GIVEN. MC PRN (04:45)
[2020-01-13] MEDS ORDERED: IV NORMAL SALINE 1000ML BAG 1,000 ML IV ONE (05:00)
[2020-01-13] MEDS ORDERED: IOHEXOL 350 MG/ML 100 ML VIAL. IV ONE (05:00)
--- NOTE | 2020-01-13 05:22 | RAD ---
INDICATION: Chest pain COMPARISON: Chest x-ray earlier same day TECHNIQUE: Axial CT images obtained through the chest. Intravenous contrast utilized. Angiogram 3D images processed per protocol. One or more of the following individualized dose reduction techniques were utilized for this examination: 1. Automated exposure control; 2. Adjustment of the mA and/or kV according to patient size; 3. Use of iterative reconstruction technique. FINDINGS: No evidence of pneumothorax. No focal airspace consolidation to suggest pneumonia. Scattered small lymph nodes in the mediastinum. Portions of ascending thoracic aorta are obscured by motion but no aneurysm or dissection flap in the visualized portion. Patient motion limits evaluation. No central pulmonary embolus but limited peripherally by motion. IMPRESSION: No central pulmonary embolus. No focal airspace consolidation to suggest pneumonia. Electronically signed by: Amadou Vega MD (01/13/2020 5:19 AM) [id number]
[2020-01-13 06:29] VITALS: BP 112/67
--- NOTE | 2020-01-13 06:49 | EKG ---
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
== END 2020-01-13 06:35 | disposition home or self-care (01) ==
LOC: ER 03:10
DX: R42 Dizziness and giddiness (principal); R00.2 Palpitations; I49.9 Cardiac arrhythmia, unspecified
CPT/HCPCS: 36415; 71045; 71275; 80053; 81025; 83735; 84443; 84484; 85025; 85379; 93005; 96361; 96374; 99285; J2060; J7030; Q9967

== ENCOUNTER 2020-02-17 20:40 | Emergency (ER) | payer SELFPAY ==
[~2020-02-17] VITALS: Ht 165.1 cm; Wt 70.0 kg
--- NOTE | 2020-02-17 21:24 | PHYS DOC ---
Past Medical History Past Medical History: No Pertinent History Past Surgical History: No Surgical History Smoking Status: Never Smoker Alcohol Use: Occasionally Drug Use: None Adult General Chief Complaint Chief Complaint: NEAR SYNCOPE HPI HPI 34-year-old female presents to the emergency department with complaints of dizziness, shortness of breath, near syncope. Patient reports approximately 8 PM she was sitting at the table and stood she became lightheaded dizzy and short of breath at that time. This has happened at least one other time. She currently denies any chest pain or shortness of breath on examination. Patient has no history of diabetes or HTN. Nothing makes her symptoms better. Review of Systems Review of Systems Constitutional: Denies fever or chills [] Respiratory: Denies cough or shortness of breath [] Cardiovascular: No additional information not addressed in HPI [] GI: Denies abdominal pain, nausea, vomiting, bloody stools or diarrhea [] Musculoskeletal: Denies back pain or joint pain [] Integument: Denies rash or skin lesions [] Neurologic: Denies headache, focal weakness or sensory changes [] All other systems were reviewed and found to be within normal limits, except as documented in this note. Current Medications Current Medications Current Medications Medications (Trade) Dose Ordered Sig/Rosmery Start Time Stop Time Status Last Admin Dose Admin Fentanyl Citrate (Fentanyl 2ml Vial) 75 mcg 1X ONCE 02/17/20 22:15 02/17/20 22:16 DC Sodium Chloride 1,000 ml @ 1,000 mls/hr 1X ONCE 02/17/20 22:00 02/17/20 22:59 02/17/20 21:33 1,000 MLS/HR Allergies Allergies Allergies Coded Allergies Type Severity Reaction Last Updated Verified No Known Drug Allergies 10/29/18 No Physical Exam Physical Exam Constitutional: Well developed, well nourished, no acute distress, non-toxic appearance. [] HENT: Normocephalic, atraumatic, bilateral external ears normal, oropharynx moist, no oral exudates, nose normal. [] Eyes: PERRLA, EOMI, conjunctiva normal, no discharge. [] Cardiovascular:Heart rate regular rhythm, no murmur [] Lungs & Thorax: Bilateral breath sounds clear to auscultation [] Abdomen: Bowel sounds normal, soft, no tenderness, no masses, no pulsatile m asses. [] Skin: Warm, dry, no erythema, no rash. [] Extremities: No tenderness, no edema. [] Neurologic: Alert and oriented X 3,no focal deficits noted. [] Psychologic: Affect normal, judgement normal, mood normal. [] Current Patient Data Vital Signs Vital Signs Date Time Temp Pulse Resp B/P (MAP) Pulse Ox O2 Delivery O2 Flow Rate FiO2 02/17/20 20:45 98.6 78 18 139/76 (97) 98 Room Air 98.6 Lab Values Laboratory Tests Test 02/17/20 20:52 02/17/20 20:54 02/17/20 21:00 Urine Collection Type Unknown Urine Color Yellow Urine Clarity Clear Urine pH 7.5 (<5.0-8.0) Urine Specific [place] 1.020 (1.000-1.030) Urine Protein Negative mg/dL (NEG-TRACE) Urine Glucose (UA) Negative mg/dL (NEG) Urine Ketones (Stick) Negative mg/dL (NEG) Urine Blood Trace (NEG) Urine Nitrite Negative (NEG) Urine Bilirubin Negative (NEG) Urine Urobilinogen Dipstick 1.0 mg/dL (0.2 mg/dL) Urine Leukocyte Esterase Large (NEG) Urine RBC 3-5 /HPF (0-2) Urine WBC 5-10 /HPF (0-4) Urine Squamous Epithelial Cells Mod /LPF Urine Bacteria Moderate /HPF (0-FEW) Urine Mucus Slight /LPF POC Urine HCG, Qualitative Hcg negative (Negative) White Blood Count 7.1 x10^3/uL (4.0-11.0) Red Blood Count 4.39 x10^6/uL (3.50-5.40) Hemoglobin 14.3 g/dL (12.0-15.5) Hematocrit 41.3 % (36.0-47.0) Mean Corpuscular Volume 94 fL (79-100) Mean Corpuscular Hemoglobin 33 pg (25-35) Mean Corpuscular Hemoglobin Concent 35 g/dL (31-37) Red Cell Distribution Width 12.9 % (11.5-14.5) Platelet Count 216 x10^3/uL (140-400) Neutrophils (%) (Auto) 58 % (31-73) Lymphocytes (%) (Auto) 33 % (24-48) Monocytes (%) (Auto) 8 % (0-9) Eosinophils (%) (Auto) 1 % (0-3) Basophils (%) (Auto) 1 % (0-3) Neutrophils # (Auto) 4.1 x10^3/uL (1.8-7.7) Lymphocytes # (Auto) 2.3 x10^3/uL (1.0-4.8) Monocytes # (Auto) 0.6 x10^3/uL (0.0-1.1) Eosinophils # (Auto) 0.1 x10^3/uL (0.0-0.7) Basophils # (Auto) 0.1 x10^3/uL (0.0-0.2) D-Dimer (Delmi) 0.60 ug/mlFEU (0.00-0.50) H Sodium Level 138 mmol/L (136-145) Potassium Level 3.5 mmol/L (3.5-5.1) Chloride Level 104 mmol/L (98-107) Carbon Dioxide Level 24 mmol/L (21-32) Anion Gap 10 (6-14) Blood Urea Nitrogen 13 mg/dL (7-20) Creatinine 0.9 mg/dL (0.6-1.0) Estimated GFR (Cockcroft-Gault) 70.8 BUN/Creatinine Ratio 14 (6-20) Glucose Level 107 mg/dL (70-99) H Calcium Level 9.1 mg/dL (8.5-10.1) Total Bilirubin 0.4 mg/dL (0.2-1.0) Aspartate Amino Transferase (AST) 18 U/L (15-37) Alanine Aminotransferase (ALT) 24 U/L (14-59) Alkaline Phosphatase 71 U/L (46-116) Troponin I Quantitative < 0.017 ng/mL (0.000-0.055) Total Protein 7.4 g/dL (6.4-8.2) Albumin 3.8 g/dL (3.4-5.0) Albumin/Globulin Ratio 1.1 (1.0-1.7) Laboratory Tests 02/17/20 21:00 Laboratory Tests 02/17/20 21:00 EKG EKG EKG reveiwed, 2131, heart rate 78, normal axis, no stemi[] Radiology/Procedures Radiology/Procedures [] Course & Med Decision Making Course & Med Decision Making Pertinent Labs and Imaging studies reviewed. (See chart for details) []34-year-old female presents to the emergency department with complaints of dizziness, shortness of breath, near syncope. Patient reports approximately 8 PM she was sitting at the table and stood she became lightheaded dizzy and short of breath at that time. This has happened at least one other time. She currently denies any chest pain or shortness of breath on examination. Patient has no history of diabetes or HTN. Nothing makes her symptoms better. Labs and imaging reviewed, patient did have decrease in blood pressure approximately 10 mmHg when going from sitting to standing, she did develop some dizziness at that time Patient had previous work-up here in the emergency department 1 month ago, CT of her chest was negative at that time, this was not repeated. D-dimer less than previous evaluations at 0.60 IV fluids, 1 L Patient is having some near syncopal episodes secondary to orthostasis. UA with UTI - keflex po x 3 days Recommend dc home and follow up with PCP Lorena Disclaimer Lorena Disclaimer This electronic medical record was generated, in whole or in part, using a voice recognition dictation system. Departure Departure Impression: Primary Impression: Orthostatic dizziness Additional Impression: UTI (urinary tract infection) Disposition: HOME, SELF-CARE Condition: IMPROVED Referrals: NO PCP (PCP) Patient Instructions: Orthostatic Hypotension, Urinary Tract Infection, [id number] Additional Instructions: Take abx as directed Labs reviewed without acute findings Recent CT of chest without pulmonary embolism Cardiac enzyme negative Recommend follow up with PCP as outpatient in 3 - 5 days Scripts Cephalexin (KEFLEX) 500 Mg Capsule 2 CAP PO Q12HR for 3 Days, #12 CAP Prov: ELMER GOETZ MD 02/17/20 Problem Qualifiers Additional Impression: UTI (urinary tract infection) Urinary tract infection type: site unspecified Hematuria presence: without hematuria Qualified Codes: N39.0 - Urinary tract infection, site not specified ELMER GOETZ MD Feb 17, 2020 21:24
[2020-02-17 21:27] LABS: BASO # 0.1 x10^3/uL (0.0-0.2); BASO % 1 % (0-3); EOS # 0.1 x10^3/uL (0.0-0.7); EOS % 1 % (0-3); HEMATOCRIT 41.3 % (36.0-47.0); HEMOGLOBIN 14.3 g/dL (12.0-15.5); LYMPH # 2.3 x10^3/uL (1.0-4.8); LYMPH % 33 % (24-48); MEAN CORPUSCULAR HEMOGLOBIN 33 pg (25-35); MEAN CORPUSCULAR HGB CONC 35 g/dL (31-37); MEAN CORPUSCULAR VOLUME 94 fL (79-100); MONO # 0.6 x10^3/uL (0.0-1.1); MONO % 8 % (0-9); NEUT # 4.1 x10^3/uL (1.8-7.7); NEUT % 58 % (31-73); PLATELET COUNT 216 x10^3/uL (140-400); RED BLOOD COUNT 4.39 x10^6/uL (3.50-5.40); RED CELL DISTRIBUTION WIDTH 12.9 % (11.5-14.5); WHITE BLOOD COUNT 7.1 x10^3/uL (4.0-11.0)
[2020-02-17 21:33] LABS: BILIRUBIN,URINE NEGATIVE (NEG); CLARITY,URINE CLEAR; COLOR,URINE YELLOW; NITRITE,URINE NEGATIVE (NEG); PH,URINE 7.5 (<5.0-8.0); PROTEIN,URINE NEGATIVE (NEG-TRACE)
[2020-02-17 21:37] LABS: CALCIUM 9.1 mg/dL (8.5-10.1); CREATININE 0.9 mg/dL (0.6-1.0); GFR 70.8; POTASSIUM 3.5 mmol/L (3.5-5.1)
[2020-02-17 21:39] LABS: BACTERIA,URINE MODERATE /HPF (0-FEW); SQUAMOUS EPITHELIAL CELL,UR MOD /LPF
[2020-02-17 21:42] LABS: ALBUMIN 3.8 g/dL (3.4-5.0); ALBUMIN/GLOBULIN RATIO 1.1 (1.0-1.7); TOTAL BILIRUBIN 0.4 mg/dL (0.2-1.0); TOTAL PROTEIN 7.4 g/dL (6.4-8.2)
[2020-02-17] MEDS ORDERED: IV NORMAL SALINE 1000ML BAG 1,000 ML IV ONE (22:00)
[2020-02-17] MEDS ORDERED: fentaNYL PF VIAL 100 MCG/2 ML VIAL IVP ONE (22:15)
[2020-02-17 22:22] VITALS: BP 121/77
[2020-02-17] MEDS ORDERED: CEPH-264 PO (22:27)
--- NOTE | 2020-02-18 05:50 | EKG ---
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
== END 2020-02-17 22:40 | disposition home or self-care (01) ==
LOC: ER 20:40
DX: N39.0 Urinary tract infection, site not specified (principal); R42 Dizziness and giddiness; R06.02 Shortness of breath; R55 Syncope and collapse
CPT/HCPCS: 36415; 80053; 81001; 81025; 84484; 85025; 85379; 87086; 93005; 96360; 99284; J7030

== ENCOUNTER 2021-08-25 09:31 | Emergency (ER) | payer SELFPAY ==
[~2021-08-25] VITALS: Ht 162.6 cm; Wt 69.0 kg
[~2021-08-25 09:31] MED LIST changes: +CEPH-264 PO
[2021-08-25 10:33] LABS: BASO # 0.1 x10^3/uL (0.0-0.2); BASO % 1 % (0-3); EOS % 0 % (0-3); HEMATOCRIT 33.4 % (36.0-47.0); HEMOGLOBIN 11.7 g/dL (12.0-15.5); LYMPH # 1.7 x10^3/uL (1.0-4.8); LYMPH % 23 % (24-48); MEAN CORPUSCULAR HEMOGLOBIN 34 pg (25-35); MEAN CORPUSCULAR HGB CONC 35 g/dL (31-37); MEAN CORPUSCULAR VOLUME 96 fL (79-100); MONO # 0.4 x10^3/uL (0.0-1.1); MONO % 6 % (0-9); NEUT # 5.3 x10^3/uL (1.8-7.7); NEUT % 70 % (31-73); PLATELET COUNT 262 x10^3/uL (140-400); RED BLOOD COUNT 3.48 x10^6/uL (3.50-5.40); RED CELL DISTRIBUTION WIDTH 12.3 % (11.5-14.5); WHITE BLOOD COUNT 7.5 x10^3/uL (4.0-11.0)
[2021-08-25 10:39] LABS: CALCIUM 8.5 mg/dL (8.5-10.1); CREATININE 0.9 mg/dL (0.6-1.0); GFR 70.1; POTASSIUM 3.6 mmol/L (3.5-5.1)
--- NOTE | 2021-08-25 10:47 | PHYS DOC ---
Past Medical History Past Medical History: No Pertinent History Past Surgical History: No Surgical History Smoking Status: Never Smoker Alcohol Use: Occasionally Drug Use: None General Adult EDM: Chief Complaint: VAGINAL BLEEDING HPI: HPI: Patient is a 36 year old female presents to the emergency department complaining of ongoing abnormal uterine bleeding after starting low Loestrin this past Saturday. Patient reports a menstrual cycle that started on 14 August 2021 with heavier flow than normal, did not stop when expected and continues until today. Patient reports she was seen at urgent care this past Saturday and was started on control pills, was recommended she follow-up with an [facility] specialist, patient is here in the emergency department stating the control pills did not stop her bleeding. Patient reports using 5 feminine pads a day. Patient denies abdominal pain or cramping, denies vaginal discharge, denies rashes or lesions to her vaginal area, denies STI concerns. Denies history of PCOS or fibroids. Patient denies dizziness or syncopal episodes or visual disturbances. Patient denies other physical complaints or physical concerns. Review of Systems: Review of Systems: 14 body systems of review of systems have been reviewed. See HPI for pertinent positives and negative responses, otherwise all other systems are negative, nonpertinent or noncontributory. Constitutional: Negative except as outlined in HPI above. Skin: Negative except as outlined in HPI above. Eyes: Negative except as outlined in HPI above. HENT: Negative except as outlined in HPI above. Respiratory: Negative except as outlined in HPI above. Cardiovascular: Negative except as outlined in HPI above. GI: Negative except as outlined in HPI above. : Negative except as outlined in HPI above. Musculoskeletal: Negative except as outlined in HPI above. Integument: Negative except as outlined in HPI above. Neurologic: Negative except as outlined in HPI above. Endocrine: Negative except as outlined in HPI above. Lymphatic: Negative except as outlined in HPI above. Psychiatric: Negative except as outlined in HPI above. Heart Score: C/O Chest Pain: No Risk Factors: Risk Factors: DM, Current or recent (<one month) smoker, HTN, HLP, family history of CAD, obesity. Risk Scores: Score 0 - 3: 2.5% MACE over next 6 weeks - Discharge Home Score 4 - 6: 20.3% MACE over next 6 weeks - Admit for Clinical Observation Score 7 - 10: 72.7% MACE over next 6 weeks - Early Invasive Strategies Allergies: Allergies: Allergies Coded Allergies Type Severity Reaction Last Updated Verified No Known Drug Allergies 08/25/21 No Physical Exam: PE: Constitutional: Well developed, well nourished, no acute distress, non-toxic appearance. 36-year-old female in no apparent distress. HENT: Normocephalic, atraumatic. Eyes: Conjunctiva normal, no discharge. Neck: Normal range of motion, no stridor. Cardiovascular: No cyanosis appreciated, distal cap refill less than 2 seconds. Lungs & Thorax: Patient is in no respiratory distress, no audible adventitious lung sounds appreciated. Abdomen: Nontender, no abnormalities noted. Skin: Warm, dry, no erythema, no rash. Back: No tenderness, no deformities. Extremities: No tenderness, no cyanosis, no clubbing, ROM intact, no edema. Neurologic: Alert and oriented X 3, normal motor function, normal sensory function, no focal deficits noted. Psychologic: Affect normal, judgement normal, mood normal. Current Patient Data: Labs: Laboratory Tests Test 08/25/21 09:47 08/25/21 10:44 White Blood Count 7.5 x10^3/uL Red Blood Count 3.48 x10^6/uL Hemoglobin 11.7 g/dL Hematocrit 33.4 % Mean Corpuscular Volume 96 fL Mean Corpuscular Hemoglobin 34 pg Mean Corpuscular Hemoglobin Concent 35 g/dL Red Cell Distribution Width 12.3 % Platelet Count 262 x10^3/uL Neutrophils (%) (Auto) 70 % Lymphocytes (%) (Auto) 23 % Monocytes (%) (Auto) 6 % Eosinophils (%) (Auto) 0 % Basophils (%) (Auto) 1 % Neutrophils # (Auto) 5.3 x10^3/uL Lymphocytes # (Auto) 1.7 x10^3/uL Monocytes # (Auto) 0.4 x10^3/uL Eosinophils # (Auto) 0.0 x10^3/uL Basophils # (Auto) 0.1 x10^3/uL Sodium Level 141 mmol/L Potassium Level 3.6 mmol/L Chloride Level 106 mmol/L Carbon Dioxide Level 27 mmol/L Anion Gap 8 Blood Urea Nitrogen 10 mg/dL Creatinine 0.9 mg/dL Estimated GFR (Cockcroft-Gault) 70.1 Glucose Level 90 mg/dL Calcium Level 8.5 mg/dL Urine Color Yellow Urine Clarity Clear Urine pH 7.5 Urine Specific [place] 1.010 Urine Protein Negative mg/dL Urine Glucose (UA) Negative mg/dL Urine Ketones (Stick) Negative mg/dL Urine Blood Large Urine Nitrite Negative Urine Bilirubin Negative Urine Urobilinogen Dipstick 0.2 mg/dL Urine Leukocyte Esterase Negative Urine RBC >40 /HPF Urine WBC Occ /HPF Urine Squamous Epithelial Cells Few /LPF Urine Bacteria 0 /HPF Urine Mucus Slight /LPF Vital Signs: Vital Signs Date Time Temp Pulse Resp B/P (MAP) Pulse Ox O2 Delivery O2 Flow Rate FiO2 08/25/21 09:40 98.2 80 15 131/83 (99) 98 Room Air 98.2 EKG: EKG: [] Radiology/Procedures: Radiology/Procedures: [] Course & Med Decision Making: Course & Med Decision Making Pertinent Labs and Imaging studies reviewed. (See chart for details) 36-year-old female, vital signs reviewed, presents emergency department concerning abnormal uterine bleeding. Physical examination unremarkable, patient is on day 2 of a lo Loestrin regimen without satisfactory results. Has not secured an appointment with an [facility] for ongoing examination and management, will order urinalysis assay, urine test, CBC. The patient's lab work unremarkable, the patient is not anemic, her urine is not infected, patient is not . Discussed findings with patient, diagnosis abnormal uterine bleeding, recommended follow-up with [facility], will give OB referral, encourage patient to continue taking medications as directed by previous provider at urgent care center, strict follow-up with PCP soon, patient is amenable to ED discharge planning. Discussed with the patient all findings and diagnostic testing as well as the need to follow-up with their primary care provider for further evaluation and treatment or return to the ED if any new or worsening symptoms. Strict return precautions were also discussed at length, the patient voiced understanding and agreement with the discharge planning. The patient was nontoxic in appearance, in no apparent distress, and hemodynamically stable at the time of disposition. Dragon Disclaimer: Dragon Disclaimer: This electronic medical record was generated, in whole or in part, using a voice recognition dictation system. Departure Departure Impression: Primary Impression: Abnormal uterine bleeding Disposition: HOME / SELF CARE / HOMELESS Condition: GOOD Referrals: NO PCP (PCP) CRISTIANA RAVI MD Patient Instructions: Abnormal Uterine Bleeding Additional Instructions: You were seen today in the emergency department for abnormal uterine bleeding. You had indicated you were seen at urgent care this past Saturday and started on a control pill to help, please take as directed. I encourage you to follow-up with an [facility] specialist, I have recommended Dr. Ravi however you may see any [facility] specialist of your choice. Your lab work was drawn today, you are not anemic, there is no sign of infection, your urine is not infected, you are not . Thank you for visiting our Emergency Department. It was a pleasure taking care of you today in the emergency department and we appreciate you trusting us with your care. If any additional problems come up don't hesitate to return to visit us. Please follow up with your primary care provider so they can plan additional care if needed and know about the problem that you had. If symptoms worsen come back to the Emergency Department. Any concerning symptoms that start such as chest pain, shortness of air, weakness or numbness on one side of the body, running high fevers or any other concerning symptoms return to the ER. Hoy la atendieron en el departamento de emergencias por sangrado uterino anormal. Usted indic que fue atendido en atencin de urgencia el mircoles pasado y comenz con isabel pldora anticonceptiva para ayudar; tmela segn las indicaciones. Le animo a que asher un seguimiento con un especialista en obstetricia / ginecologa. Le he recomendado al Dr. Ravi; sin embargo, puede consultar a cualquier especialista en obstetricia y ginecologa de fam eleccin. Fam anlisis de laboratorio se realiz hoy, no est anmica, no hay signos de infeccin, fam orina no est infectada, no est embarazada. Dorian por visitar nuestro Departamento de Emergencias. Fue un placer atenderlo hoy en el departamento de emergencias y le agradecemos que nos haya confiado fam atencin. Si surge algn problema adicional, no dude en volver a visitarnos. Asher un seguimiento con fam proveedor de atencin primaria para que puedan planificar atencin adicional si es necesario y conocer el problema que tuvo. Si los sntomas empeoran, regrese al Departamento de Emergencias. Cualquier sntoma preocupante que comience, kadie dolor en el pecho, falta de aire, debilidad o entumecimiento en un lado del cuerpo, fiebre david o cualquier otro sntoma preocupante, regresa a la uma de emergencias. EMERGENCY DEPARTMENT GENERAL DISCHARGE INSTRUCTIONS Thank you for coming to [facility] Emergency Department (ED) today and trusting us with you care. We trust that you had a positive experience in our Emergency Department. If you wish to speak to the department management, you may call the Director at [phone]. YOUR FOLLOW UP INSTRUCTIONS ARE FOLLOWS: 1. Do you have a private Doctor? If you do not have a private doctor, please ask for a resource list of physicians or clinics that may be able to assist you with follow up care. 2. The Emergency Physicain has interpreted your x-rays. The X-Ray specialist will also review them. If there is a change in the findings, you will be notified in 48 hours when at all possible. 3. A lab test or culture has been done, your results will be reviewed and you will be notified if you need a change in treatment. ADDITIONAL INSTRUCTIONS AND INFORMATION: 1. Your care today has been supervised by a physician who is specially trained in emergency care. Many problems require more than one evaluation for a complete diagnosis and treatment. We recommend that you schedule your follow up appointment as recommended to ensure complete treatment of you illness or injury. If you are unable to obtain follow up care and continue to have a problem, or if your condition worsens, we recommend that you return to the ED. 2. We are not able to safely determine your condition over the phone nor are we able to give sound medical advice over the phone. For these safety reasons, if you call for medical advice we will ask you to come to the ED for further evaluation. 3. If you have any questions regarding these discharge instructions please call the ED at [phone]. SAFETY INFORMATION: In the interest of safety, wellness, and injury prevention; we encourage you to wear your sealbelt, if you smoke; quite smoking, and we encourage family to use a protective helmet for bicycling and other sporting events that present an increased risk for head injury. IF YOUR SYMPTOMS WORSEN OR NEW SYMPTOMS DEVELOP, OR YOU HAVE CONCERNS ABOUT YOUR CONDITION; OR IF YOUR CONDITION WORSENS WHILE YOU ARE WAITING FOR YOUR FOLLOW UP APPOINTMENT; EITHER CONTACT YOUR PRIMARY CARE DOCTOR, THE PHYSICIAN WHOSE NAME AND NUMBER YOU WERE GIVEN, OR RETURN TO THE ED IMMEDIATELY. CRISTIANA ARNDT APRN Aug 25, 2021 10:46
[2021-08-25 10:55] LABS: BILIRUBIN,URINE NEGATIVE (NEG); CLARITY,URINE CLEAR; COLOR,URINE YELLOW; NITRITE,URINE NEGATIVE (NEG); PH,URINE 7.5 (<5.0-8.0); PROTEIN,URINE NEGATIVE (NEG-TRACE); UROBILINOGEN,URINE 0.2 mg/dL (0.2 mg/dL)
[2021-08-25 11:10] LABS: BACTERIA,URINE 0 /HPF (0-FEW); RBC,URINE >40 /HPF (0-2); WBC,URINE OCC /HPF (0-4)
[2021-08-25 12:14] VITALS: BP 114/72
== END 2021-08-25 12:16 | disposition home or self-care (01) ==
LOC: ER 09:31
DX: N93.9 Abnormal uterine and vaginal bleeding, unspecified (principal)
CPT/HCPCS: 36415; 80048; 81001; 85025; 99283

== ENCOUNTER 2022-03-17 19:42 | Emergency (ER) | payer SELFPAY ==
[~2022-03-17] VITALS: Ht 160 cm; Wt 71.8 kg
[2022-03-17 19:50] VITALS: BP 116/73
[2022-03-17] MEDS ORDERED: IBUPROFEN 400 MG TABLET. PO ONE (20:15)
[2022-03-17] MEDS ORDERED: ONDANSETRON ODT 4 MG TAB.RAPDIS. PO ONE (20:15)
[2022-03-17] MEDS ORDERED: ONDA4TAB12 PO (20:57)
[2022-03-17] MEDS ORDERED: BENZ-8 PO (20:57)
--- NOTE | 2022-03-17 21:01 | PHYS DOC ---
Past Medical History Past Medical History: No Pertinent History Past Surgical History: No Surgical History Smoking Status: Never Smoker Alcohol Use: Occasionally Drug Use: None General Adult EDM: Chief Complaint: FEVER HPI: HPI: Patient is a 36 year old female who presents with 2-week history of fever, nasal congestion, cough, nausea, body ache. Patient reports she has a headache that began this morning. She last took ibuprofen at 11 AM with some symptom relief. Patient has been evaluated prior, at her symptom onset. She is concerned because she is not feeling better. Patient was vaccinated against COVID-19, but has not received a flu shot this year. She has not come in contact with anyone with similar symptoms. Patient denies vomiting, abdominal pain, diarrhea, constipation, shortness of breath. Review of Systems: Review of Systems: ROS negative or noncontributory except as mentioned in HPI. Heart Score: C/O Chest Pain: No Current Medications: Current Medications Medications (Trade) Dose Ordered Sig/Rosmery Start Time Stop Time Status Last Admin Dose Admin Ibuprofen (Motrin) 800 mg 1X ONCE 03/17/22 20:15 03/17/22 20:16 DC 03/17/22 20:13 800 MG Ondansetron HCl (Zofran Odt) 4 mg 1X ONCE 03/17/22 20:15 03/17/22 20:16 DC 03/17/22 20:13 4 MG Allergies: Allergies: Allergies Coded Allergies Type Severity Reaction Last Updated Verified No Known Drug Allergies 08/25/21 No Physical Exam: PE: Constitutional: Well developed, well nourished, no acute distress, non-toxic appearance. HENT: Normocephalic, atraumatic, bilateral external ears normal, nose normal. Eyes: EOMI, conjunctiva normal, no discharge. Neck: Normal range of motion, no stridor. Cardiovascular: Heart regular rate and rhythm. No apparent murmurs, rubs or gallops. Lungs & Thorax: Equal thoracic expansion, no increased work of breathing. Abdomen: Bowel sounds normal, soft, no tenderness, no masses, no pulsatile masses. Skin: Warm, dry, no erythema, no rash. Neurologic: Alert and oriented x4, normal motor function, normal sensory function, no focal deficits noted. Current Patient Data: Labs: Laboratory Tests Test 03/17/22 19:56 03/17/22 20:10 Bedside Urine HCG, Qualitative Hcg negative (Negative) Coronavirus (COVID-19)(PCR) Not detected (NOT DETECTD) Influenza Type A Antigen Negative (NEGATIVE) Influenza Type B Antigen Negative (NEGATIVE) SARS-CoV-2 Antigen (Rapid) Negative (NEGATIVE) Vital Signs: Vital Signs Date Time Temp Pulse Resp B/P (MAP) Pulse Ox O2 Delivery O2 Flow Rate FiO2 03/17/22 19:50 99.6 101 20 116/73 (87) 99 Room Air 99.6 Course & Med Decision Making: Course & Med Decision Making Pertinent Labs and Imaging studies reviewed. (See chart for details) Patient is a 36-year-old female who presents with multiple complaints, COVID-19 and influenza cannot be excluded. Swabs are obtained today. Patient was counseled on symptomatic treatment for viral syndrome. Return precautions were provided. Patient understands and is agreeable to discharge plan. Patient is romanian speaking. Interview and exam were conducted in romanian with good understanding and fluid communication. Dragon Disclaimer: Dragon Disclaimer: This chart was dictated in whole or in part using Voice Recognition software in a busy, high-work load, and often noisy Emergency Department environment. It may contain unintended and wholly unrecognized errors or omissions. Departure Departure Impression: Primary Impression: Acute viral syndrome Disposition: HOME / SELF CARE / HOMELESS Condition: STABLE Referrals: NO PCP (PCP) Patient Instructions: Viral Syndrome Additional Instructions: Siga las siguientes medidas de tratamiento de apoyo: - Humidificador de vapor fro con agua corriente al lado de la cama mientras duerme - Mucinex (guaifenesina) segn instrucciones de la caja - Tessalon perles (benzonatato) para la tos, especialmente por la noche antes de acostarse - Zofran (ondansetron) para la sensacion de nauseas - Alternar ibuprofeno y paracetamol cada cuatro horas para artie corporales/fiebre/dolor de david Pasos a seguir: - Descansar segn sea necesario. - Elija alimentos saludables que incluyan frutas y verduras. May agua judith todo el da. - Duerma lo suficiente cada noche. - Si fuma, trate de dejarlo. Puede facilitar la respiracin. - Evite el alcohol. - Mantenga a los dems saludables Comunquese con pereira mdico si pereira recuperacin no va kadie esperaba. Obtenga atencin de emergencia si tiene problemas kadie: - Dificultad para respirar con saturacin de oxgeno <90% - Dolor o presin en el pecho sin parar - Cambios en la conciencia, confusin o problemas para despertarse - Los labios o la bakari tienen un color azulado - Empeoramiento de los sntomas Si yrn que tiene isabel emergencia, llame a los servicios mdicos de emergencia de inmediato. INSTRUCCIONES GENERALES DE GALEN DEL DEPARTAMENTO DE EMERGENCIA Dorian por venir asuncion al Departamento de Emergencias (ED) de [facility] y confiarnos pereira atencin. Confiamos en que haya tenido isabel experiencia positiva en nuestro Departamento de Emergencias. Si desea hablar con la gerencia del departamento, puede llamar al director al . PETERSON INSTRUCCIONES DE SEGUIMIENTO SON LAS SIGUIENTES: 1. Asher un seguimiento con pereira mdico de atencin primaria. Si no tiene un mdico de cabecera, solicite isabel lista de recursos de mdicos o clnicas que puedan ayudarlo con la atencin de seguimiento. 2. El proveedor de emergencia harrison interpretado peterson estudios de imgenes, si se ordenaron. El especialista en imgenes de radiologa tambin los howard. Si hay un cambio en los hallazgos, se le notificar en 48 horas cuando sea posible. 3. Si se harrison realizado isabel prueba de laboratorio o un cultivo, se revisarn peterson resultados y se le notificar si necesita un cambio en el tratamiento. 4. Siga las instrucciones verbalizadas y consulte las copias impresas si es necesario. INSTRUCCIONES E INFORMACIN ADICIONALES: 1. Pereira atencin hoy harrison sido supervisada por un mdico especialmente capacitado en atencin de emergencia. Muchos problemas requieren ms de isabel evaluacin para un diagnstico y tratamiento completos. Le recomendamos que programe pereira castillo de seguimiento segn lo recomendado para garantizar el tratamiento completo de pereira enfermedad o lesin. Si no puede obtener atencin de seguimiento y contina teniendo un problema, o si pereira condicin empeora, le recomendamos que regrese al servicio de urgencias. 2. No podemos determinar de manera jackson pereira condicin por telfono ni podemos fadi consejos mdicos slidos por telfono. Por estas razones de seguridad, si llama para pedir consejo mdico, le pediremos que vaya al servicio de urgencias para isabel evaluacin adicional. 3. Si tiene alguna pregunta sobre estas instrucciones de galen, llame al ED al . INFORMACIN DE SEGURIDAD: En inters de la seguridad, el bienestar y la prevencin de lesiones; le recomendamos que use pereira cinturn de seguridad, si fuma; bastante fumador, y alentamos a la kimmy a usar un dangelo protector para andar en bicicleta y otros eventos deportivos que presenten un mayor riesgo de lesiones en la david. SI PETERSON SNTOMAS EMPEORAN O SE DESARROLLAN NUEVOS SNTOMAS, O SI TIENE PREOCUPACIONES SOBRE PEREIRA CONDICIN; O SI PEREIRA CONDICIN EMPEORA MIENTRAS ESPERA PEREIRA CASTILLO DE SEGUIMIENTO; PNGASE EN CONTACTO CON PEREIRA MDICO DE ATENCIN PRIMARIA, EL MDICO CUYO NOMBRE Y NMERO LE DIERON, O REGRESE AL ED INMEDIATAMENTE. Scripts Benzonatate (BENZONATATE) 100 Mg Capsule 1-2 CAP PO HS, #20 CAP Prov: TEJA SCRUGGS 03/17/22 Ondansetron (ONDANSETRON ODT) 4 Mg Tab.rapdis 1 TAB PO PRN Q6-8HRS, #20 TAB Prov: TEJA SCRUGGS 03/17/22 TEJA SCRUGGS Mar 17, 2022 21:01
[2022-03-17 21:17] LABS: INFLUENZA A PATIENT NEGATIVE (NEGATIVE); INFLUENZA B PATIENT NEGATIVE (NEGATIVE)
== END 2022-03-17 21:20 | disposition home or self-care (01) ==
LOC: ER 19:42
DX: B34.9 Viral infection, unspecified (principal); Z20.822 Contact with and (suspected) exposure to COVID-19
CPT/HCPCS: 81025; 87428; 99283; C9803; U0003